=== PATIENT | female | born 1985 | race Caucasian/White ===

== ENCOUNTER 2019-01-17 09:21 | Outpatient (CLI) | payer OTHER ==
--- NOTE | 2019-01-19 16:25 | Magnetic Resonance Report ---
BILATERAL BREAST MR WITHOUT AND WITH GADOLINIUM INDICATION: Newly diagnosed right breast cancer. She had an ultrasound-guided needle biopsy on 2018. Pathology: Infiltrating ductal carcinoma grade 2, ER/OH positive and HER-2 positive with Ki-67 unfavorable at 79.07% COMPARISONS: 01/06/2019 right mammogram. TECHNIQUE: Axial 1.0 mm T1 without, axial high-resolution 2.0 mm T2 and axial 1.0 mm dynamic vibrant high-resolution postcontrast T1 fat saturation sequences on a 1.5 Linda magnet. The examination was p erformed with an 8-channel dedicated [place] breast coil. Post-processing with CAD and subtraction was performed on an [employer] workstation. 11.0 cc of MultiHance was injected without incident for the c ontrast portion of the exam. Consent was obtained prior to the administration of the contrast. FINDINGS: RIGHT BREAST: Marked background parenchymal enhancement. The known cancer is an irregular enhancing m ass at 9:00 approximately 8 cm from the nipple and 1.6 cm from the chest wall. It measures 1.6 x 1.2 x 1.6 cm and demonstrates heterogeneous enhancement with mixed kinetics, 353% peak enhancement and 55 % type III washout. A portion of the mass blends with the pectoral muscle indicating possible pectora l muscle involvement. Extensive clumped nonmass enhancement involves the outer right breast and measu res approximately 6 x 6 x 2 cm. It demonstrates heterogeneous enhancement with mixed kinetics, 785% p eak enhancement and 60% type III washout. No other mass or suspicious enhancement of the right breast . A suspicious level 1 right axillary lymph node has a thick cortex measuring 8 mm and a suspicious s ubpectoral lymph node has no central fat and measures 11 mm. LEFT BREAST: Minimal background parenchymal enhancement. A benign intradermal skin lesion in the uppe r outer quadrant 3.5 cm from the nipple measures 5 x 3 x 3 mm. It is T2 hyperintense. It demonstrates heterogeneous enhancement with mixed kinetics, 205% peak enhancement and 26% type III washout. No ma ss or suspicious enhancement of the left breast. No suspicious lymph nodes. IMPRESSION: 1. A 1.6 cm known right breast cancer at 9:00 8 cm from the nipple and 1.5 cm from the chest wall. Po ssible pectoral muscle involvement by tumor. 2. Extensive nonmass enhancement of the right breast extending at least 6 cm from the known cancer to [place] the nipple. 3. A suspicious right level 1 axillary lymph node and a suspicious right subpectoral lymph node. 4. Negative left breast with a benign 5 mm sebaceous cyst. FINAL ASSESSMENT: Signer Name: Hosea De Guzman MD Signed: 01/19/2019 4:20 PM Workstation Name: [id number]
== END 2019-01-17 09:22 | disposition home or self-care (01) ==
LOC: SPVIMAG 09:21
PROVIDERS: ATTEND Surgery
DX: C50.411 Malignant neoplasm of upper-outer quadrant of right female breast (principal)
CPT/HCPCS: A9577; C8908; 77049

== ENCOUNTER 2019-06-08 06:08 | Observation (INO) | payer OTHER ==
[~2019-06-08 06:08] MED LIST: BACITRACIN 50,000 UNIT VIAL IR ONE; CELECOXIB 200 MG CAP PO NR; GABAPENTIN 300 MG CAP PO NR; GENTAMICIN 40 MG/ML VIAL 2 ML IV ONE; LACTATED RINGERS 1,000 ML IV SCH; MIDAZOLAM 2 MG/2 ML INJ IV NR; SODIUM CHLORIDE 0.9% IRR 1,500 ML BOTTLE IR ONE; WATER FOR IRRIG STERILE 1,500 ML BOTTLE IR ONE; ceFAZolin 1 GM VIAL IV ONE; ceFAZolin/Water 2 GM/20 ML 2 GM/20 ML SYRINGE IV NR; fentaNYL 100 MCG/2 ML INJ IV PRN
[2019-06-08] MEDS ORDERED: BACTERIOSTATIC SODIUM CHLORIDE 0.9% 30 ML VIAL INFILTRATI ONE (06:53)
[2019-06-08] MEDS ORDERED: BACITRACIN 50,000 UNIT VIAL ONE (07:11)
[2019-06-08] MEDS ORDERED: ceFAZolin 1 GM VIAL ONE (07:11)
[2019-06-08] MEDS ORDERED: GENTAMICIN 40 MG/ML VIAL 2 ML ONE (07:11)
[2019-06-08] MEDS ORDERED: METHYLENE BLUE 50 MG/10 ML AMP ONE (07:11)
[2019-06-08] MEDS ORDERED: SODIUM CHLORIDE 0.9% 1000 ML 1,000 ML ONE (07:12)
[2019-06-08] MEDS ORDERED: BUPIVACAINE-EPINEPHRINE/PF 0.5%-1:200,000 (30 ML) VIAL INFILTRATI ONE (07:28)
[2019-06-08] MEDS ORDERED: dexAMETHasone 4 MG/ML VIAL ONE (07:28)
[2019-06-08] MEDS ORDERED: cloNIDine/PF 1,000 MCG/10 ML VIAL EP ONE (07:28)
[2019-06-08] MEDS ORDERED: propofoL 200 MG/20 ML VIAL IV ONE (07:34)
[2019-06-08] MEDS ORDERED: HYDROmorphone 1 MG/1 ML INJ ONE ×2 (07:34→12:55)
[2019-06-08] MEDS ORDERED: ROCURONIUM 50 MG/5 ML INJ IV ONE (07:38)
[2019-06-08] MEDS ORDERED: LIDOCAINE MPF (2%) 20 MG/1 ML VIAL 5 ML ONE (07:38)
--- NOTE | 2019-06-08 07:57 | Anesthesia Day of Surgery ---
Anesthesia Day of Surgery - Day of Surgery Patient Examined: Yes Patient H&P Reviewed: Yes Patient is NPO: Yes
--- NOTE | 2019-06-08 07:57 | Anesthesia Consultation ---
Anesthesia Consult and Med Hx Date of service: 06/08/19 - Airway Anesthetic Teeth Evaluation: Good ROM Head & Neck: Adequate Mental/Hyoid Distance: Adequate Mallampati Class: Class II Intubation Access Assessment: Good - Pulmonary Exam CTA: Yes - Cardiac Exam Cardiac Exam: No Murmur - Pre-Operative Health Status ASA Pre-Surgery Classification: ASA2 Proposed Anesthetic Plan: General Nerve Block: PEC - Central Nervous System Hx Psychiatric Problems: No - Endocrine Hx Liver Disease: (TOLD TO GET HER LIVER CHECKED NO RESULTS YET) - Other Systems Hx Alcohol Use: Yes (OCCA) Hx Substance Use: No Hx Cancer: Yes
[2019-06-08] MEDS ORDERED: HYDROmorphone 1 MG/1 ML INJ IV PRN (08:30)
[2019-06-08] MEDS ORDERED: PHENYLEPHRINE/NS 1,000 MCG/10 ML SYRINGE (OR USE) IV ONE ×2 (09:13→09:50)
[2019-06-08] MEDS ORDERED: ONDANSETRON 4 MG/2 ML INJ ONE (09:14)
[2019-06-08] MEDS ORDERED: dexAMETHasone 20 MG/5 ML VIAL ONE (09:15)
[2019-06-08] MEDS ORDERED: ePHEDrine SULFATE 50 MG/1 ML INJ ONE (09:42)
[2019-06-08] MEDS ORDERED: WATER FOR IRRIG STERILE 1,500 ML BOTTLE IR ONE (10:30)
[2019-06-08] MEDS ORDERED: ceFAZolin 1 GM VIAL IV ONE (10:53)
[2019-06-08] MEDS ORDERED: BACITRACIN 50,000 UNIT VIAL IR ONE (10:53)
[2019-06-08] MEDS ORDERED: GENTAMICIN 40 MG/ML VIAL 2 ML IV ONE (10:53)
[2019-06-08] MEDS ORDERED: ONDANSETRON 4 MG/2 ML INJ IV PRN (11:02)
[2019-06-08] MEDS ORDERED: METOCLOPRAMIDE 10 MG TAB PO PRN (11:02)
[2019-06-08] MEDS ORDERED: diphenhydrAMINE 25 MG CAP PO PRN (11:02)
[2019-06-08] MEDS ORDERED: ACETAMINOPHEN 325 MG TAB PO PRN (11:02)
--- NOTE | 2019-06-08 11:02 | Short Stay Summary ---
Short Stay Documentation Date of service: 06/08/19 - History H&P: obtained from office - Allergies and Medications Current Medications: Allergies No Known Allergies Allergy (Verified 06/03/19 09:51) Home Medications Medication Instructions Recorded Confirmed Last Taken Type RX: No Known Home Medications [No 06/03/19 06/03/19 Unknown History Reported Home Medications] Active Medications Celecoxib (Celebrex) 200 mg PO PREOP NR Stop: 06/08/19 23:59 Last Admin: 06/08/19 06:50 Dose: 200 mg Documented by: Fentanyl (Sublimaze) 100 mcg IV ONCE PRN PRN Reason: sedation for nerve block Gabapentin (Gabapentin) 300 mg PO PREOP NR Stop: 06/08/19 23:59 Last Admin: 06/08/19 06:50 Dose: 300 mg Documented by: Hydromorphone HCl (Dilaudid) 0.5 mg IV Q10MIN PRN PRN Reason: Pain , Severe (7-10) Stop: 06/08/19 14:00 Cefazolin Sodium (Ancef/Sterile Water 2 Gm/20 Ml) 2 gm in 20 mls @ 80 mls/hr IV PREOP NR; Protocol Stop: 06/08/19 16:00 Lactated Ringer's (Lactated Ringers) 1,000 mls @ 100 mls/hr IV DIRECT RONDA Last Admin: 06/08/19 07:10 Dose: 100 mls/hr Documented by: Midazolam HCl (Versed) 2 mg IV PREOP NR Stop: 06/08/19 23:59 Last Admin: 06/08/19 07:40 Dose: 2 mg Documented by: - Brief post op/procedure progress note Date of procedure: 06/08/19 Pre-op diagnosis: Right breast cancer of upper outer quadrant Post-op diagnosis: same Procedure: Right total mastectomy with SLNB Anesthesia: GETA Findings: Right total mastectomy with 2 clips present and 2 SLNs on frozen section and negative for malignancy Surgeon: JOSE LYON Estimated blood loss: 50-100ml Pathology: list (right total mastectomy with SLNsx2) Specimen disposition: to lab Condition: stable - Disposition Condition at discharge: Good Disposition: DC/TX-02 SHRT-TRM GEN HOSP IP Short Stay Discharge Plan Activity: other (no heavy lifting) Diet: regular Wound: keep clean and dry Follow up with: PRIMARY CARE, [Primary Care Provider] - 7 Days JOSE LYON MD [Staff Physician] - 7 Days
[2019-06-08] MEDS ORDERED: MORPHINE 2 MG/1 ML INJ IV PRN (11:04)
--- NOTE | 2019-06-08 11:11 | Mammography Report ---
SPECIMEN RADIOGRAPH RIGHT BREAST INDICATION: Right breast cancer. COMPARISON: 05/05/2019 right mammogram and 01/25/2019 breast MRI. FINDINGS: 2 biopsy clips are identified within the whole breast specimen. IMPRESSION: Excision of known cancers. Signer Name: Hosea De Guzman MD Signed: 06/08/2019 11:06 AM Workstation Name: [id number]
[2019-06-08] MEDS ORDERED: SODIUM CHLORIDE 0.9% IRR 1,500 ML BOTTLE IR ONE (11:35)
[2019-06-08] MEDS ORDERED: SODIUM CHLORIDE 0.9% IRR 1,000 ML BOTTLE IR ONE (11:35)
[2019-06-08] MEDS ORDERED: SODIUM CHLORIDE 0.9% 1000 ML IV SOLN IJ ONE (11:36)
[2019-06-08] MEDS ORDERED: NEOSTIGMINE 10MG/10 ML INJ MDV ONE (11:42)
[2019-06-08] MEDS ORDERED: GLYCOPYRROLATE 0.4 MG/2 ML INJ ONE (11:42)
[2019-06-08] MEDS ORDERED: LACTATED RINGERS 1,000 ML ONE ×2 (11:47)
[2019-06-08] MEDS ORDERED: LACTATED RINGERS 1,000 ML IV SCH (12:00)
--- NOTE | 2019-06-08 12:02 | Operative Report ---
PREOPERATIVE DIAGNOSES: 1. Personal history of breast cancer, right breast. 2. Acquired deformity of right breast, status post mastectomy. POSTOPERATIVE DIAGNOSES: 1. Personal history of breast cancer, right breast. 2. Acquired deformity of right breast, status post mastectomy. PROCEDURE: Immediate right breast reconstruction with placement of tissue grill cook and FlexHD acellular dermal matrix. SURGEON: Jim Hernandez MD. PERFORMANCE IMPROVEMENT ANALYST: None. ANESTHESIA: General. DRAINS: IGGY x 2. SPECIMENS: None. COMPLICATIONS: None. ESTIMATED BLOOD LOSS: Less than 10 mL. INDICATIONS: The patient is a 34-year-old woman who presents with right-sided breast cancer. Dr. Hernandez performed today a right mastectomy with sentinel node biopsy. The patient, after reviewing options, has decided to proceed with immediate breast reconstruction with the use of a tissue grill cook and ADM. The nature of the surgery, technical aspects, typical recovery period and potential risks involved were discussed fully including but not limited to postop bleeding, infection, pronounced scar, hematoma or seroma formation, areas of paresthesias or numbness which may be permanent, delayed healing, capsular contracture, implant leak, failure and need for replacement, failure to achieve anticipated goals, asymmetry, need for revision or future surgery. She understands the staged nature of breast reconstruction and subsequent procedures will be required, including removal of the tissue grill cook once the expansion process is complete and exchange for an implant. DESCRIPTION OF PROCEDURE: The patient was already anesthetized, prepped and draped, Dr. Hernandez had completed the mastectomy and sentinel node biopsy. Flaps were evaluated and deemed of adequate thickness and viable. An electrocautery was utilized to divide the inferior and inferomedial aspect of the pectoralis major muscle. Subpectoral pocket was developed under direct vision and the pocket was then irrigated with copious amounts of triple antibiotic solution comprised of Ancef, gentamicin and bacitracin solution. FlexHD was triply washed in the triple antibiotic solution and a 9 x 15 cm shaped perforated FlexHD was oriented and inset along the inframammary fold with interrupted 0 PDS sutures along its inferior aspect. Superiorly, it was attached to the inferior portion of the pectoralis major muscle with interrupted 0 Vicryl suture. A deflated 350 mL Romney Artoura tissue grill cook was placed subpectoral and sub-ADM. The tabs were sewn down to the chest wall with interrupted Vicryl suture. A deep 10 flat IGGY drain was placed and a superficial 7-mm IGGY drain was placed exiting through separate inferolateral stab incisions and sewn in place with 2-0 silk. Meticulous hemostasis was achieved with electrocautery and then closure commenced with a 2-0 Vicryl at the level of the subcutaneous tissue plane in a running fashion, 3-0 Monocryl at the level of the deep dermis in an interrupted manner once the skin edges were freshened and reapproximated and then a running subcuticular 4-0 Monocryl suture. Dermaflex skin glue was applied on the skin. 60 mL of saline was sterilely introduced via closed sterile technique. There was no undue tension on the skin and the skin flaps appeared very healthy, pink, viable with excellent capillary refill. The patient was placed into a surgical bra. She was extubated and transferred to the recovery area in stable condition having done well. [facility]# [id number] /RONEL
--- NOTE | 2019-06-08 12:30 | Operative Report ---
Operative Report Operative Report: perative Report: Date of Service: June 08, 2019 Preoperative diagnosis: Right breast cancer of the upper outer quadrant Postoperative diagnosis: Same Procedure: Right total mastectomy with sentinel lymph node biopsy Surgeon: Crista Hernandez M.D. Agricultural Consultant: Mr. Headley Anesthesia: Gen. Findings: Right breast clips present within right total mastectomy, x2 right SLNs and negative for malignancy Complications: None Drains: per Plastic Surgery Estimated blood loss: Minimal Disposition: PACU in good condition Indications for operative procedure: This is a 34-year-old lady with newly diagnosed right breast cancer of the upper outer quadrant IDCA grade 3 [id number] ER/NC/Her-2 positive. She recently completed neoadjuvant chemotherapy of TCH/P. Patient wished to proceed with a right total mastectomy and she wished to proceed with the above procedure. She wished to proceed with immediate PRS with poker dealer placement. Diagnostic imaging following chemotherapy with breast mass not present. Procedure in detail: Anesthesia placed right pectoral muscle block prior to goi ng to the operating room. The patient was taken to the operating room and was placed supine. Gen. anesthesia was administered. The right nipple was injected with radioisotope and 1 cc of methylene blue dye with 1 cc of saline. Right breast and axilla was prepped and draped in the normal sterile operative fashion. Timeout was performed. Typical mastectomy incision marking was made, right mastectomy including known cancer location at the 9:00/9:30 position 5 cm from the nipple. Attention was then taken towards the right breast. A gamma probe was inserted into the axilla to identify the sentinel lymph node location with uptake present. A skin incision was made with a 10 blade knife and dissection taken down to the subcutaneous tissues. First began raising of the superior flap to the level of the clavicle and posteriorly to the pectoralis muscle. Then proceeded with raising of the medial flap to the level of the sternum and posteriorly to the pectoralis muscle. Followed by raising of the lateral flap to the level of the latissimus dorsi muscle and taken down posteriorly. The gamma probe was inserted into the axilla. The axillary fascia was opened and 2 SLNS were identified one with SLN with blue dye and all SLNs were negative for malignancy on frozen section. Then proceeded with raising of the inferior flap to the level of the inframammary fold taken posterior to the pectoralis muscle. The mastectomy/breast was removed from the pectoralis muscle without incident. The specimen was appropriately marked and sent to radiology with findings of 2 breast clips present and sent to pathology. Hemostasis was noted. The chest wall was irrigated and suctioned. Hemostasis was obtained. Plastic surgery then proceeded with immediate tissue poker dealer placement. She tolerated surgery very well.
[2019-06-08] MEDS: oxyCODONE /ACETAMINOPHEN 5-325MG TAB PO PRN (19:25)
[2019-06-08] MEDS: DOCUSATE SODIUM 100 MG CAP PO SCH (21:22)
[2019-06-09] MEDS: oxyCODONE /ACETAMINOPHEN 5-325MG TAB PO PRN ×2 (01:42→10:18)
--- NOTE | 2019-06-09 07:47 | Progress Note ---
Assessment and Plan This is a 34 year old lady with Stage I right breast cancer of upper outer quadrant, POD#1 right total mastectomy with SLNB and tissue insulation technician placement. 1. Pain in good control. 2. Right chest incision healing well, skin well perfused; no hematoma. 3. IGGY drain education. 4. OOB to hallway. 5. D/C planning for today. Subjective Date of service: 06/09/19 Principal diagnosis: Right breast cancer Stage I Interval history: POD#1 right total mastectomy wtih SLNB and immediate tissue insulation technician placement Objective - Constitutional Vitals: Vital Signs - 12hr 06/09/19 06/09/19 06/09/19 00:00 01:42 04:00 Temperature 98.7 F 98.4 F Pulse Rate 74 70 Respiratory 16 18 18 Rate Blood Pressure 104/68 119/67 [Left] General appearance: Present: no acute distress - EENT Eyes: PERRL, EOM intact ENT: hearing intact, clear oral mucosa, dentition normal Ears: bilateral: normal - Neck Neck: supple, normal ROM - Respiratory Respiratory effort: normal Respiratory: bilateral: CTA - Breasts Breasts: other (right mastectomy skin flap healing well; incision c/d/i; IGGY drain to bulb suction; skin well perfused) - Cardiovascular Rhythm: regular Extremities: no ischemia, pulses intact, pulses symmetrical, No edema, normal temperature, normal color, Full ROM - Gastrointestinal General gastrointestinal: Present: soft, non-tender, non-distended Rectal Exam: deferred - Genitourinary Female genitourinary: deferred - Integumentary Integumentary: clear, warm, dry - Musculoskeletal Musculoskeletal: strength equal bilaterally - Neurologic Neurologic: CNII-XII intact - Psychiatric Psychiatric: appropriate mood/affect, intact judgment & insight, memory intact, cooperative Medications & Allergies - Medications Allergies/Adverse Reactions: Allergies No Known Allergies Allergy (Verified 06/03/19 09:51) Home Medications: Home Medications Medication Instructions Recorded Confirmed Last Taken Type No Known Home Medications [No 06/03/19 06/03/19 Unknown History Reported Home Medications] Active Medications: Generic Name Dose Route Start Last Admin Trade Name Freq PRN Reason Stop Dose Admin Acetaminophen 650 mg 06/08/19 11:02 Tylenol PO Q6H PRN Pain MILD(1-3)/Fever >100.5/VILLARREAL Diphenhydramine HCl 25 mg 06/08/19 11:02 Benadryl PO Q8H PRN Itching Docusate Sodium 100 mg 06/08/19 22:00 06/08/19 21:22 Colace PO 100 mg BID RONDA Administration Fentanyl 100 mcg 06/08/19 06:00 Sublimaze IV ONCE PRN sedation for nerve block Lactated Ringer's 1,000 mls @ 100 mls/hr 06/07/19 11:00 06/08/19 07:10 Lactated Ringers IV 100 mls/hr DIRECT RONDA Administration Lactated Ringer's 1,000 mls @ 125 mls/hr 06/08/19 12:00 Lactated Ringers IV DIRECT RONDA Metoclopramide HCl 10 mg 06/08/19 11:02 Reglan PO Q6H PRN Nausea And Vomiting Morphine Sulfate 2 mg 06/08/19 11:04 Morphine IV Q4H PRN Pain, Moderate (4-6) Ondansetron HCl 4 mg 06/08/19 11:02 Zofran IV Q8H PRN N/V unrelieved by Reglan Oxycodone/Acetaminophen 1 tab 06/08/19 11:02 06/09/19 01:42 Percocet 5/325 PO 1 tab Q6H PRN Administration Pain, Moderate (4-6) Sodium Chloride 10 ml 06/08/19 11:02 Sodium Chloride Flush Syringe 10 Ml IV PRN PRN LINE FLUSH
[2019-06-09] MEDS ORDERED: FERROUS SULFATE 325 MG TAB PO ONE (09:49)
[2019-06-09] MEDS: DOCUSATE SODIUM 100 MG CAP PO SCH (10:18)
[2019-06-09 12:23] VITALS: BP 120/70
== END 2019-06-09 11:30 | disposition home or self-care (01) ==
LOC: OR 06:08 → OB 11:02
PROVIDERS: ADMIT Surgery; ATTEND Surgery
DX: C50.411 Malignant neoplasm of upper-outer quadrant of right female breast (principal)
CPT/HCPCS: 19303; 38525; 38792; 64450; 76098; 78800; 81025; 88307; 88331; 88342; 96374; A9541; C1789; G0378; J0690; J0735; J1100; J1170; J1580; J2250; J2370; J2405; J2704; J2710; J7030; J7120; Q4128; Q9968; 88309; 88333; J3010